=== PATIENT | female | born 1980 | race Caucasian/White ===

== ENCOUNTER 2018-06-14 19:44 | Emergency (ER) | payer OTHER ==
[~2018-06-14] VITALS: Ht 157.5 cm; Wt 90.3 kg
[2018-06-14 19:49] VITALS: Ht 157.5 cm; Wt 90.3 kg
[2018-06-14 20:07] VITALS: BP 127/80
== END 2018-06-14 20:08 | disposition other institution (70) ==
LOC: ED 19:44
DX: Z02.89 Encounter for other administrative examinations (principal)